=== PATIENT | female | born 1990 | race Caucasian/White ===

== ENCOUNTER 2024-10-20 17:46 | Emergency (ER) | payer SELFPAY ==
[~2024-10-20] VITALS: Ht 162.6 cm; Wt 83.0 kg
[2024-10-20 18:15] VITALS: O2SAT 99
[2024-10-20 19:06] LABS: BASOPHILS % 0.5 % (0.0-2.0); EOSINOPHILS % 1.4 % (0.0-5.0); HEMATOCRIT. 40.6 % (36.0-48.0); HEMOGLOBIN. 13.6 g/dL (12.0-16.0); LYMPHOCYTES % 32.2 % (20.0-50.0); MEAN PLATELET VOLUME 9.6 fl (7.4-10.4); MONOCYTES % 7.3 % (2.0-8.0); NEUTROPHILS % 58.6 % (40.0-76.0); PLATELET 273 x1000/uL (130-400); RED BLOOD CELL COUNT 4.53 mill/uL (4.2-5.4); RED CELL DISTRIBUTION WIDTH 13.1 % (11.6-14.6)
[2024-10-20 19:20] LABS: CREATININE 0.9 mg/dL (0.6-1.0); UREA NITROGEN BLOOD 12 mg/dL (9-23)
[2024-10-20 19:26] LABS: CLARITY URINE CLEAR (CLEAR); COLOR URINE YELLOW (YELLOW); GLUCOSE URINE NEGATIVE (NEGATIVE); KETONES URINE NEGATIVE (NEGATIVE); NITRITE URINE NEGATIVE (NEGATIVE); OCCULT BLOOD URINE NEGATIVE (NEGATIVE); PH URINE 7.5 (4.5-8.0); PROTEIN URINE NEGATIVE (NEGATIVE); SPECIFIC GRAVITY URINE 1.006 (1.005-1.030)
[2024-10-20 19:27] LABS: LEUKOCYTE ESTERASE URINE NEGATIVE (NEGATIVE); UROBILINOGEN URINE 0.2 E.U./dL (0.2-1.0)
[2024-10-20] MEDS: KETOROLAC 30MG/ML VIAL IM ONE (22:03)
[2024-10-20 22:07] VITALS: BP 160/102; PULSE 66; RESP 18; TEMP 36.7; O2SAT 99
[2024-10-20] MEDS ORDERED: IBUP-2029 MT (23:09)
[2024-10-20 23:21] LABS: UCG KIT LOT# 946166; UCG SCREEN NEGATIVE
[2024-10-23 05:11] LABS: CHLAMYDIA TRACHOMATIS NAA Negative (Negative); NEISSERIA GONORRHOEAE NAA Negative (Negative)
== END 2024-10-20 23:21 | disposition home or self-care (01) ==
LOC: ER 17:46
DX: R10.2 Pelvic and perineal pain (principal); F19.90 Other psychoactive substance use, unspecified, uncomplicated; Z88.1 Allergy status to other antibiotic agents
CPT/HCPCS: 99285; 74176; 76830; 76856; 87491; 87591; 80048; 81003; 81025; 85025; 36415; 96372; J1885